=== PATIENT | female | born 1985 | race Caucasian/White ===

== ENCOUNTER 2019-10-18 23:10 | Emergency (ER) | payer BC ==
[~2019-10-18] VITALS: Ht 165.1 cm; Wt 111.0 kg
[2019-10-18 23:24] VITALS: BP 151/85
[2019-10-18 23:59] LABS: BILIRUBIN,URINE NEG (NEG); CLARITY,URINE CLEAR; COLOR,URINE YELLOW; GLUCOSE,URINE NEG (NEG)
[2019-10-19] LABS: BACTERIA,URINE 0 /HPF (0-FEW); NITRITE,URINE NEG (NEG); RBC,URINE 0 /HPF (0-2); SQUAMOUS EPITHELIAL CELL,UR OCC /LPF; UROBILINOGEN,URINE 0.2 mg/dL (0.2 mg/dL); WBC,URINE OCC /HPF (0-4)
--- NOTE | 2019-10-19 00:03 | PHYS DOC ---
Past History Past Medical History: Ovarian Cyst Past Surgical History: Other Additional Past Surgical Histo: LEEP, ovarian cyst removal Smoking: Cigarettes Alcohol Use: Occasionally Drug Use: None General Adult EDM: Chief Complaint: ABDOMINAL PAIN HPI: HPI: 34-year-old female presents with multiple complaints including peripheral edema x2 weeks. Patient also concerned with foul odor of urine as well as increased urinary frequency. Patient reports she has been up on her feet secondary to recently moving her home as well as taking care of her father who recently had a heart attack. Patient reports she has "not had time to take care of herself ". Patient also reports has been eating increased fast foods. Patient does report she has tried to increase her fluid intake by drinking a "large bottle of water daily ". Denies history of PE/DVT. Denies shortness of air. Denies . Reports last menstrual period was 3 months ago. Patient reports recently she has been having irregular periods. Review of Systems: Review of Systems: Constitutional: Denies fever or chills Eyes: Denies redness or eye pain HENT: Denies nasal congestion or sore throat Respiratory: Denies cough or shortness of breath Cardiovascular: Denies chest pain or palpitations GI: Denies abdominal pain, nausea, or vomiting : Denies dysuria or hematuria; reports urinary frequency and foul odor Musculoskeletal: Denies back pain; reports bilateral leg swelling Integument: Denies rash or skin lesions Neurologic: Denies headache, focal weakness or sensory changes Complete systems were reviewed and found to be within normal limits, except as documented in this note. Allergies: Allergies: Allergies Coded Allergies Type Severity Reaction Last Updated Verified No Known Drug Allergies 10/18/19 No Physical Exam: PE: Constitutional: Well developed, obese, no acute distress, non-toxic appearance HENT: Normocephalic, atraumatic Eyes: Conjunctiva normal, no discharge Neck: Normal range of motion, supple Cardiovascular: Bilateral DP and PT pulses +2, CR <2 sec Lungs & Thorax: No respiratory distress, equal chest rise and fall Skin: Warm, dry, no erythema, no rash Back: No midline tenderness, no CVA tenderness Extremities: No calf tenderness, ROM intact, trace bilateral lower extremity edema Neurologic: Alert and oriented X 3, no focal deficits noted Psychologic: Affect normal, judgment normal Current Patient Data: Vital Signs: Vital Signs Date Time Temp Pulse Resp B/P (MAP) Pulse Ox O2 Delivery O2 Flow Rate FiO2 10/18/19 23:24 97.7 94 19 151/85 (107) 96 Room Air EKG: EKG: [] Radiology/Procedures: Radiology/Procedures: [] Course & Med Decision Making: Course & Med Decision Making Pertinent Lab studies reviewed. (See chart for details) Patient presents with bilateral lower extremity edema that is been ongoing for several weeks. Patient also reports concern for possible UTI. Physical exam unremarkable. No calf tenderness noted. Trace edema bilaterally appreciated. Patient advised edema more likely secondary increase salt intake, obesity, and being on her feet for longer periods of time. Patient advised to elevate legs at rest. Patient also advised to use compression stockings should she be on her feet for prolonged period of time. UA unremarkable. Urine negative. Patient stable for discharge with outpatient follow-up with PCP. Discussed findings and plan with patient, who acknowledges understanding and agreement. Gricelda Disclaimer: Gricelda Disclaimer: This electronic medical record was generated, in whole or in part, using a voice recognition dictation system. Departure Departure: Impression: Primary Impression: Peripheral edema Disposition: 01 HOME/RESIDENCE PRIOR TO ADM Condition: STABLE Referrals: PCP,NO (PCP) Patient Instructions: Compression Stockings, Peripheral Edema Additional Instructions: Decrease your salt intake. Elevated your legs when at rest. Use compression stockings if you are going to be on your feet for extended period of time. Justification of Admission: Justification of Admission: Justification of Admission Dx: N/A DANELLE DE LEÓN DO Oct 19, 2019 00:03
[2019-10-19 00:40] LABS: U PREG PATIENT NEGATIVE (NEG)
== END 2019-10-19 00:11 | disposition home or self-care (01) ==
LOC: ER 23:10
DX: R60.0 Localized edema (principal); N92.6 Irregular menstruation, unspecified; M79.89 Other specified soft tissue disorders; F17.200 Nicotine dependence, unspecified, uncomplicated; Z98.890 Other specified postprocedural states
CPT/HCPCS: 81001; 81025; 99283